=== PATIENT | male | born 1970 | race African-American/Black ===

== ENCOUNTER 2016-10-23 04:36 | Emergency (ER) | payer MEDICAID ==
[~2016-10-23] VITALS: Ht 180.3 cm; Wt 86.6 kg
[~2016-10-23 04:36] MED LIST: CYCLOBENZAPRINE10 MG ORAL; IBUPROFEN600 MG ORAL; NKM; TIZANIDINE HCL4 MG ORAL
[2016-10-23 05:00] VITALS: BP 119/89
[2016-10-23] MEDS ORDERED: CYCLOBENZAPRINE10 MG ORAL (05:00)
[2016-10-23] MEDS ORDERED: Cyclobenzaprine 10mg Tab ORAL ONE (05:00)
[2016-10-23 05:10] VITALS: BP 119/89
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
== END 2016-10-23 05:10 | disposition home or self-care (01) ==
LOC: EMR 04:57
DX: S33.5XXA Sprain of ligaments of lumbar spine, initial encounter (principal); V49.9XXA Car occupant (driver) (passenger) injured in unspecified traffic accident, initial encounter; Y93.9 Activity, unspecified; Y92.410 Unspecified street and highway as the place of occurrence of the external cause
CPT/HCPCS: 99283

== ENCOUNTER 2017-01-11 23:32 | Emergency (ER) | payer MEDICAID ==
[~2017-01-11] VITALS: Ht 180.3 cm; Wt 83.9 kg
[2017-01-11 23:42] VITALS: BP 151/90
[2017-01-12] MEDS ORDERED: IBUPROFEN600 MG ORAL
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
[2017-01-12 00:52] VITALS: BP 138/99
--- NOTE | 2017-01-12 11:02 | Diagnostic Imaging Report ---
Indication: Back pain Comparison: None Findings: 3 views of the lumbar spine were obtained. No acute fracture or malalignment is identified. Vertebral body heights and disk spaces are well maintained. Posterior elements are unremarkable. Impression: No acute findings.
== END 2017-01-12 00:50 | disposition home or self-care (01) ==
LOC: EMR 23:40
DX: S33.5XXA Sprain of ligaments of lumbar spine, initial encounter (principal); M54.2 Cervicalgia; V43.52XA Car driver injured in collision with other type car in traffic accident, initial encounter; Y93.9 Activity, unspecified; Y92.410 Unspecified street and highway as the place of occurrence of the external cause
CPT/HCPCS: 72020; 99283

== ENCOUNTER 2017-05-18 19:50 | Emergency (ER) | payer MEDICAID ==
[~2017-05-18] VITALS: Ht 180.3 cm; Wt 86.2 kg
[2017-05-18 20:15] VITALS: BP 150/104
--- NOTE | 2017-05-20 15:06 | Emergency Room Report ---
History of Present Illness General Chief Complaint: Behavioral Complaint Source: Patient Present Illness Allergies: Coded Allergies: No Known Allergies (Unverified , 11/07/15) Nursing Documentation-PMH Hx Asthma: Yes Hx Diabetes: Yes Physical Exam Vital Signs Date Time Temp Pulse Resp B/P (MAP) Pulse Ox O2 Delivery O2 Flow Rate FiO2 05/18/17 19:55 97.7 87 16 150/104 96 Room Air Medical Decision Making Diagnostic Impression: Primary Impression: Behavioral change Additional Impression: Patient left without being seen ER Course Patient left without being seen Last Vital Signs Date Time Temp Pulse Resp B/P (MAP) Pulse Ox O2 Delivery O2 Flow Rate FiO2 05/18/17 20:15 97.7 16 150/104 96 Room Air 05/18/17 19:55 87 Status: improved Disposition: LEFT W/OUT BEING SEEN Condition: Stable Referrals: [facility],REFERRING (PCP) NICOLE KING M.D. May 20, 2017 15:06
== END 2017-05-18 20:30 | disposition left against medical advice (07) ==
LOC: EMR 20:25
DX: F91.9 Conduct disorder, unspecified (principal); J45.909 Unspecified asthma, uncomplicated; E11.9 Type 2 diabetes mellitus without complications
CPT/HCPCS: 99282

== ENCOUNTER 2017-07-26 00:16 | Emergency (ER) | payer MEDICAID ==
[~2017-07-26] VITALS: Ht 180.3 cm; Wt 90.7 kg
[2017-07-26 00:25] VITALS: BP 132/93
[2017-07-26] MEDS ORDERED: NKM (00:26)
[2017-07-26] MEDS ORDERED: ROBAXIN-750750 MG PO (01:21)
[2017-07-26] MEDS ORDERED: IBUPROFEN600 MG ORAL (01:21)
[2017-07-26 01:31] VITALS: BP 132/93
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
--- NOTE | 2017-07-26 09:59 | Diagnostic Imaging Report ---
Indication: Dyspnea Comparison: None A single view chest radiograph was obtained. Findings: Cardiomediastinal appearance is within normal limits for age. Pulmonary vascularity is appropriate. The diaphragmatic contour is smooth and costophrenic angles are sharp. No pleural effusions are identified. The bones are unremarkable. Impression: No acute findings
== END 2017-07-26 01:32 | disposition home or self-care (01) ==
LOC: EMR 00:35
DX: S20.212A Contusion of left front wall of thorax, initial encounter (principal); V43.52XA Car driver injured in collision with other type car in traffic accident, initial encounter; Y92.410 Unspecified street and highway as the place of occurrence of the external cause; E11.9 Type 2 diabetes mellitus without complications; J45.909 Unspecified asthma, uncomplicated
CPT/HCPCS: 71045; 99284

== ENCOUNTER 2018-02-24 00:21 | Emergency (ER) | payer MEDICAID ==
[~2018-02-24] VITALS: Ht 180.3 cm; Wt 98.9 kg
[~2018-02-24 00:21] MED LIST changes: +ROBAXIN-750750 MG PO
[2018-02-24 00:37] VITALS: BP 142/97
[2018-02-24] MEDS ORDERED: IBUPROFEN600 MG ORAL (00:42)
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
[2018-02-24 01:28] VITALS: BP 142/97
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
== END 2018-02-24 01:28 | disposition home or self-care (01) ==
LOC: EMR 01:20
DX: S63.501A Unspecified sprain of right wrist, initial encounter (principal); S33.5XXA Sprain of ligaments of lumbar spine, initial encounter; V43.52XA Car driver injured in collision with other type car in traffic accident, initial encounter; Y92.410 Unspecified street and highway as the place of occurrence of the external cause
CPT/HCPCS: 72020; 99284

== ENCOUNTER 2018-04-08 03:14 | Emergency (ER) | payer MEDICAID ==
[~2018-04-08] VITALS: Ht 177.8 cm; Wt 95.3 kg
[2018-04-08] MEDS ORDERED: IBUPROFEN600 MG ORAL (03:44)
--- NOTE | 2018-04-08 03:44 | Emergency Room Report ---
History of Present Illness General Chief Complaint: Pain Source: Patient Present Illness HPI This is a 47-year-old male with no past medical history. He presents with right foot pain. Onset was this evening. He dropped a 40 pound frozen turkey on his foot. He said it swell up initially. He wrapped it up. No fever chills but no nausea no vomiting. Pain is throbbing in nature. 7 out of 10. Worse with walking. Better with rest and elevation. Allergies: Coded Allergies: No Known Allergies (Unverified , 11/07/15) Patient History Past Medical History: see triage record, old chart reviewed Past Surgical History: none Pertinent Family History: none Social History: Denies: smoking Immunizations: other Reviewed Nursing Documentation: PMH: Agreed; PSxH: Agreed Nursing Documentation-PMH Hx Asthma: Yes Hx Diabetes: Yes Review of Systems Eye: Denies: eye pain, blurred vision ENT: Denies: ear pain, nose congestion, throat swelling Respiratory: Denies: cough, shortness of breath Cardiovascular: Denies: chest pain, palpitations Gastrointestinal: Denies: abdominal pain, diarrhea, nausea, vomiting Musculoskeletal: Reports: joint pain, muscle pain; Denies: back pain Skin: Denies: rash Neurological: Denies: headache, numbness Endocrine: Denies: increased thirst, increased urine Hematologic/Lymphatic: Denies: easy bruising All Other Systems: negative except mentioned in HPI Physical Exam Vital Signs Date Time Temp Pulse Resp B/P (MAP) Pulse Ox O2 Delivery O2 Flow Rate FiO2 04/08/18 03:24 87 18 127/84 98 Room Air vitals normal Sp02 EP Interpretation: reviewed, normal General Appearance: well appearing, no apparent distress, alert Head: normocephalic, atraumatic Eyes: bilateral eye PERRL, bilateral eye EOMI ENT: hearing grossly normal, normal pharynx Neck: full range of motion, supple, no meningismus Respiratory: chest non-tender, lungs clear, normal breath sounds Cardiovascular #1: regular rate, rhythm, no murmur Gastrointestinal: normal bowel sounds, non tender, no mass, no organomegaly, no bruit, non-distended Musculoskeletal: back normal, gait/station normal, normal range of motion, other - Right foot: Tenderness over the dorsum of the foot. No deformity. No ecchymosis. No edema. Pulses normal. Neurologic: alert, oriented x3 Psychiatric: mood/affect normal Skin: warm/dry Medical Decision Making Diagnostic Impression: Primary Impression: Contusion of foot, right Qualified Codes: S90.31XA - Contusion of right foot, initial encounter ER Course Patient with a foot contusion. No fracture dislocation. We'll discharge home. Other X-Ray Diagnostic Results Other X-Ray Diagnostic Results : X-Ray ordered: Right foot x-rays # of Views/Limited Vs Complete: 3 View Indication: Pain EP Interpretation: Yes Interpretation: no dislocation, no soft tissue swelling, no fractures Impression: No acute disease Electronically Signed by: George Colvin MD Last Vital Signs Date Time Temp Pulse Resp B/P (MAP) Pulse Ox O2 Delivery O2 Flow Rate FiO2 04/08/18 03:24 87 18 127/84 98 Room Air Status: improved Disposition: HOME, SELF-CARE Scripts Ibuprofen* (MOTRIN*) 600 Mg Tablet 600 MG ORAL THREE TIMES A DAY, #30 TAB 0 Refills Prov: George Colvin MD 04/08/18 Referrals: [facility],REFERRING (PCP) Additional Instructions: Follow-up with your doctor in 7 days. Elevate leg. Ice pack to area. Return if worse. George Colvin MD Apr 08, 2018 03:44
[2018-04-08 03:57] VITALS: BP 127/84
[2018-04-08 04:07] VITALS: BP 123/80
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
== END 2018-04-08 03:55 | disposition home or self-care (01) ==
LOC: EMR 03:27
DX: S90.31XA Contusion of right foot, initial encounter (principal); W22.8XXA Striking against or struck by other objects, initial encounter; Y92.009 Unspecified place in unspecified non-institutional (private) residence as the place of occurrence of the external cause; E11.9 Type 2 diabetes mellitus without complications; J45.909 Unspecified asthma, uncomplicated
CPT/HCPCS: 99283

== ENCOUNTER 2018-08-26 00:34 | Emergency (ER) | payer MEDICAID ==
[~2018-08-26] VITALS: Ht 180.3 cm; Wt 95.3 kg
[2018-08-26] MEDS ORDERED: NKM (00:41)
--- NOTE | 2018-08-26 00:44 | NUR ---
ED Nurse Note: pt came in c/o of sore throat for 1 month. denies fever.
[2018-08-26 00:45] VITALS: BP 146/97
--- NOTE | 2018-08-26 01:02 | Emergency Room Report ---
History of Present Illness General Chief Complaint: Sore Throat Source: Patient Present Illness HPI This is a 48-year-old male with a history of diabetes. He presents with chief complaint of throat pain. Been ongoing for over a month. He said it worse when he swallows. No fever chills but no nausea no vomiting. A year ago he had a physical and was told that his thyroid is enlarged. He never follow-up. Denies any weight loss. Denies any sweating. Denies any fast heart rate. Denies any reflux problem. Allergies: Coded Allergies: No Known Allergies (Unverified , 11/07/15) Patient History Past Medical History: see triage record, old chart reviewed, DM, AFib Nursing Documentation-H Past Medical History: No History, Except For Hx Asthma: Yes Hx Diabetes: Yes Review of Systems Eye: Denies: eye pain, blurred vision ENT: Reports: throat pain; Denies: ear pain, nose congestion, throat swelling Respiratory: Denies: cough, shortness of breath Cardiovascular: Denies: chest pain, palpitations Gastrointestinal: Denies: abdominal pain, diarrhea, nausea, vomiting Musculoskeletal: Denies: back pain, joint pain Skin: Denies: rash Neurological: Denies: headache, numbness Endocrine: Denies: increased thirst, increased urine Hematologic/Lymphatic: Denies: easy bruising All Other Systems: negative except mentioned in HPI Physical Exam Vital Signs Date Time Temp Pulse Resp B/P (MAP) Pulse Ox O2 Delivery O2 Flow Rate FiO2 08/26/18 00:38 98.2 66 16 146/97 96 Room Air vitals normal Sp02 EP Interpretation: reviewed, normal General Appearance: well appearing, no apparent distress, alert Head: normocephalic, atraumatic Eyes: bilateral eye PERRL, bilateral eye EOMI ENT: hearing grossly normal, normal pharynx Neck: full range of motion, supple, no meningismus, other - Enlarged thyroid Respiratory: chest non-tender, lungs clear, normal breath sounds Cardiovascular #1: regular rate, rhythm, no murmur Gastrointestinal: normal bowel sounds, non tender, no mass, no organomegaly, no bruit, non-distended Musculoskeletal: back normal, gait/station normal, normal range of motion Psychiatric: mood/affect normal Skin: warm/dry Medical Decision Making Diagnostic Impression: Primary Impression: Goiter ER Course Patient with a goiter. No evidence of hyperthyroidism or toxicity. Explained to patient that he needs to follow-up with his primary care doctor for further workup. We'll discharge home. No evidence of any tonsillitis. Last Vital Signs Date Time Temp Pulse Resp B/P (MAP) Pulse Ox O2 Delivery O2 Flow Rate FiO2 08/26/18 00:45 98.2 66 16 146/97 96 Room Air Status: unchanged Disposition: HOME, SELF-CARE Condition: Stable Referrals: NON PHYSICIAN (PCP) Additional Instructions: You have an enlarged goiter/thyroid gland. You will need to see her doctor for further workup like an ultrasound or thyroid function tests. All of water your doctor within a week. Return if symptom worsen. George Colvin MD Aug 26, 2018 01:02
[2018-08-26 01:12] VITALS: BP 146/97
--- NOTE | 2018-08-26 01:13 | NUR ---
ED Nurse Note: Pt cleared by health care Provider for discharge. DC instructions/prescription was given and explained to pt and verbalized understanding of teachings. All medical deviecs such as ID band removed. Pt is AAO x4, ambulatory and left with all personal belongings.
== END 2018-08-26 01:13 | disposition home or self-care (01) ==
LOC: EMR 00:49
DX: E04.9 Nontoxic goiter, unspecified (principal); E11.9 Type 2 diabetes mellitus without complications
CPT/HCPCS: 99282; J7512

== ENCOUNTER 2018-09-29 23:17 | Emergency (ER) | payer MEDICAID ==
[~2018-09-29] VITALS: Ht 180.3 cm; Wt 90.7 kg
[2018-09-29 23:24] VITALS: BP 136/91
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
[2018-09-29] MEDS ORDERED: Acetaminophen 500mg (ES) tab PO ONE (23:45)
--- NOTE | 2018-09-30 00:24 | NUR ---
ED Nurse Note: XRAY completed
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
[2018-09-30] MEDS ORDERED: TRAMADOL HCL50 MG ORAL (01:15)
[2018-09-30] MEDS ORDERED: IBUPROFEN600 MG ORAL (01:15)
[2018-09-30] MEDS ORDERED: ROBAXIN500 MG PO (01:15)
[2018-09-30] MEDS ORDERED: TYLENOL325 MG ORAL (01:15)
[2018-09-30 01:22] VITALS: BP 132/88
--- NOTE | 2018-09-30 01:23 | NUR ---
ER DISCHARGE NOTE: Patient is cleared to be discharged per ERMD, pt is aox4, on room air, with stable vital signs. pt was given dc and prescription instructions, pt was able to verbalize understanding, pt id band remoed. pt is able to ambulate with steady gait. pt took all belongings.
== END 2018-09-30 01:23 | disposition home or self-care (01) ==
LOC: EMR 23:41
DX: M25.512 Pain in left shoulder (principal); R07.9 Chest pain, unspecified; E11.9 Type 2 diabetes mellitus without complications; V43.52XA Car driver injured in collision with other type car in traffic accident, initial encounter; Y92.410 Unspecified street and highway as the place of occurrence of the external cause
CPT/HCPCS: 71045; 99284

== ENCOUNTER 2019-01-15 01:52 | Emergency (ER) | payer MEDICAID ==
[~2019-01-15] VITALS: Ht 180.3 cm; Wt 93.0 kg
[~2019-01-15 01:52] MED LIST changes: +ROBAXIN500 MG PO; +TRAMADOL HCL50 MG ORAL; +TYLENOL325 MG ORAL
--- NOTE | 2019-01-15 02:30 | NUR ---
ED Nurse Note: RECIEVED PT ON MYCHAL FROM HOME, AWAKE, ALERT AND ORIENTED X 4, PT HERE WITH C/O ABD PAIN WITH NAUSEA, VOMITING AND DIARRHEA FOR PAST 3 DAYS, DENIES CP, SOB, OR ANY OTHER COMPLAINTS, PT GOWNED AND URINE SAMPLE COLLECTED, WILL CONTINUE TO CLOSELY MONTIOR AND RESUME CARE ORDERED.
--- NOTE | 2019-01-15 02:36 | Emergency Room Report ---
History of Present Illness General Chief Complaint: Nausea, Vomiting, and Diarrhea Source: Patient Present Illness [facility] This is a 48-year-old male with a history of asthma. He presents with chief complaint of feeling sick. This afternoon after eating some snow cone, he said he felt nauseous. Vomited once. Also has some loose stool. Comic. No fever chills. Not eating much today. No abdominal pain. Thought it may be food poisoning. Allergies: Coded Allergies: No Known Allergies (Unverified , 09/29/18) Patient History Past Medical History: see triage record, old chart reviewed, asthma Past Surgical History: none Pertinent Family History: none Social History: Denies: smoking Immunizations: other Reviewed Nursing Documentation: PMH: Agreed; PSxH: Agreed Nursing Documentation-PMH Past Medical History: No History, Except For Hx Asthma: Yes Hx Diabetes: No Review of Systems Eye: Denies: eye pain, blurred vision ENT: Denies: ear pain, nose congestion, throat swelling Respiratory: Denies: cough, shortness of breath Cardiovascular: Denies: chest pain, palpitations Gastrointestinal: Reports: diarrhea, nausea, vomiting; Denies: abdominal pain Musculoskeletal: Denies: back pain, joint pain Skin: Denies: rash Neurological: Denies: headache, numbness Endocrine: Denies: increased thirst, increased urine Hematologic/Lymphatic: Denies: easy bruising All Other Systems: negative except mentioned in HPI Physical Exam Vital Signs Date Time Temp Pulse Resp B/P (MAP) Pulse Ox O2 Delivery O2 Flow Rate FiO2 01/15/19 02:19 99.3 84 18 126/91 (103) 93 Room Air Vitals normal Sp02 EP Interpretation: reviewed, normal General Appearance: well appearing, no apparent distress, alert Head: normocephalic, atraumatic Eyes: bilateral eye PERRL, bilateral eye EOMI ENT: hearing grossly normal, normal pharynx Neck: full range of motion, supple, no meningismus Respiratory: chest non-tender, lungs clear, normal breath sounds Cardiovascular #1: regular rate, rhythm, no murmur Gastrointestinal: normal bowel sounds, non tender, no mass, no organomegaly, no bruit, non-distended Musculoskeletal: back normal, gait/station normal, normal range of motion Psychiatric: mood/affect normal Medical Decision Making Diagnostic Impression: Primary Impression: Nausea, vomiting, and diarrhea ER Course Patient with nausea vomiting and diarrhea. Most likely an early gastroenteritis versus food poisoning. He has no abdominal pain. At this moment in time, I see no evidence of appendicitis or acute abdomen. He said he felt better after taking Zofran. Tolerating p.o. Will discharge home. Last Vital Signs Date Time Temp Pulse Resp B/P (MAP) Pulse Ox O2 Delivery O2 Flow Rate FiO2 01/15/19 02:19 99.3 84 18 126/91 (103) 93 Room Air Status: improved Disposition: HOME, SELF-CARE Condition: Stable Scripts Ondansetron* (ZOFRAN*) 4 Mg Tablet 4 MG ORAL Q6H PRN for Nausea & Vomiting, #10 TAB Prov: George Colvin MD 01/15/19 Additional Instructions: Advance diet as tolerated. Follow-up with your doctor in 2 3 days if not better. Return if worse. George Colvin MD Jan 15, 2019 02:36
[2019-01-15 03:15] VITALS: BP 121/79
[2019-01-15] MEDS ORDERED: ZOFRAN4 M3 ORAL (03:15)
--- NOTE | 2019-01-15 03:25 | NUR ---
ER DISCHARGE NOTE: Patient is cleared to be discharged per ERMD, pt is aox4, on room air, with stable vital signs. pt was given dc and prescription instructions, pt was able to verbalize understanding, pt id band removed without complications. pt is able to ambulate with steady gait. pt took all belongings.
[2019-01-15 03:30] VITALS: BP 126/91
== END 2019-01-15 03:30 | disposition home or self-care (01) ==
LOC: EMR 02:32
DX: R11.2 Nausea with vomiting, unspecified (principal); R19.7 Diarrhea, unspecified
CPT/HCPCS: 99282

== ENCOUNTER 2019-07-25 12:14 | Emergency (ER) | payer MEDICAID ==
[~2019-07-25] VITALS: Ht 180.3 cm; Wt 99.8 kg
[~2019-07-25 12:14] MED LIST changes: +ZOFRAN4 M3 ORAL
[2019-07-25 12:25] VITALS: BP 136/84
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
[2019-07-25] MEDS ORDERED: Acetaminophen 500mg (ES) tab ORAL ONE (12:45)
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
[2019-07-25] MEDS ORDERED: SKELAXIN800 MG PO ×2 (12:59)
[2019-07-25] MEDS ORDERED: IBUPROFEN600 MG ORAL (12:59)
[2019-07-25 13:05] VITALS: BP 130/80
[2019-07-25] MEDS ORDERED: CYCLOBENZAPRINE10 MG ORAL (13:47)
== END 2019-07-25 13:05 | disposition home or self-care (01) ==
LOC: EMR 12:53
DX: S16.1XXA Strain of muscle, fascia and tendon at neck level, initial encounter (principal); S39.012A Strain of muscle, fascia and tendon of lower back, initial encounter; V49.40XA Driver injured in collision with unspecified motor vehicles in traffic accident, initial encounter; Y92.410 Unspecified street and highway as the place of occurrence of the external cause; R51 Headache
CPT/HCPCS: 99282